=== PATIENT | female | born 1970 | race Two or more races ===

== ENCOUNTER 2018-04-06 22:06 | Emergency (ER) | payer BC, OTHER ==
[~2018-04-06] VITALS: Ht 157.5 cm; Wt 70.3 kg
[2018-04-06 22:08] VITALS: BP 143/87
--- NOTE | 2018-04-06 22:15 | NUR ---
PT TAKEN TO BED 10
--- NOTE | 2018-04-06 22:32 | NUR ---
Dr. Gutierrez evaluating patient at bedside.
--- NOTE | 2018-04-06 22:35 | NUR ---
PT BIB self to ED for mouth pain. PT reports sharp/stabing pain at 10/10 x3 days. PT states she needs to get a root cannal, but before the dentist will do the root cannal she needs to get rid of her infection. PT was first prescribed penicillin and was then switched to clindamycin. PT has been prescribed ibuprofin and tramadol PO to no pain relief. PT denies past medical history. ER MD notified of PT condition. Safety precautions in place, will continue to monitor.
[2018-04-06] MEDS ORDERED: fentaNYL 0.05 MG/ML VIAL IM ONE (22:40)
--- NOTE | 2018-04-07 00:23 | NUR ---
cPatient discharged with v/s stable. Written and verbal after care instructions given and explained. Pt had family return to ER to pick her up. Patient alert, oriented and verbalized understanding of instructions. Ambulatory with steady gait. All questions addressed prior to discharge. ID band removed. Patient advised to follow up with PMD. Rx of NORCO given. Patient educated on indication of medication including possible reaction and side effects. Opportunity to ask questions provided and answered.
[2018-04-07 00:26] VITALS: BP 116/79
== END 2018-04-07 00:23 | disposition home or self-care (01) ==
LOC: MED 22:06
DX: K04.7 Periapical abscess without sinus (principal)
CPT/HCPCS: 96372; 99283; J3010